=== PATIENT | male | born 1975 | race Two or more races ===

== ENCOUNTER 2024-02-22 18:32 | Emergency (ER) | payer OTHER ==
[~2024-02-22] VITALS: Ht 172.7 cm; Wt 108.7 kg
[2024-02-22 19:40] LABS: Red Cell Distribution Width 13.2 % (11.8-14.3)
[2024-02-22 19:42] LABS: Hematocrit 51.3 % (41.0-53.0); Hemoglobin 18.1 g/dL (13.5-17.5); Mean Corpuscular Hemoglobin 32.4 pg (28.0-32.0); Mean Corpuscular Hgb Conc. 35.4 g/dL (32.0-36.0); Mean Corpuscular Volume 91.4 fL (80.0-100.0); Red Blood Cells 5.61 10^6/uL (4.5-5.90); White Blood Cell 21.9 10^3/uL (4.4-10.8)
[2024-02-22 19:45] LABS: Basophils % (manual) 0 (0.0-2.0); Blast Cells 0; Eosinophils % (manual) 0 (0-7); Metamyelocytes % 0; Myelocytes % 0; Promyelocytes % 0; Reactive Lymphocytes 0
[2024-02-22 19:56] LABS: Alanine Aminotransferase 26 U/L (7-40); Alkaline Phosphatase 66 U/L (46-116); Anion Gap 10 (5-15); Aspartate Aminotransferase 12 U/L (13-40); BUN/Creatinine Ratio 22.2 (10.0-20.0); Bilirubin, Total 0.3 mg/dL (0.2-1.0); Blood Urea Nitrogen 24 mg/dL (9-23); Carbon Dioxide 22 mmol/L (20-30); Chloride 108 mmol/L (98-107); Glucose 93 mg/dL (74-106); Potassium 3.6 mmol/L (3.5-5.1); Sodium 140 mmol/L (136-145); Total Protein 6.6 g/dL (5.7-8.2)
[2024-02-22 20:26] LABS: Band Neutrophils % (manual) 5; Lymphocytes % (manual) 17 (10.0-50.0); Monocytes % (manual) 5 (0-12); Platelet Estimate Adequate
[2024-02-22 20:27] LABS: Anisocytosis Slight
[2024-02-22] MEDS: PANTOPRAZOLE 40 MG/10 ML VIAL INJ IV ONE (23:45)
[2024-02-23 00:35] VITALS: BP 113/77; PULSE 84; RESP 16; TEMP 98.5; O2SAT 96
== END 2024-02-23 01:00 | disposition left against medical advice (07) ==
LOC: ER 18:32
DX: K20.90 Esophagitis, unspecified without bleeding (principal); F17.210 Nicotine dependence, cigarettes, uncomplicated
CPT/HCPCS: 36415; 71045; 71250; 80053; 83735; 83880; 84484; 85007; 85027; 93005